=== PATIENT | female | born 1935 | race Hispanic/Latino ===

== ENCOUNTER 2022-01-13 09:14 | Outpatient (CLI) | payer MEDICARE ==
--- NOTE | 2022-01-13 11:10 | Cat Scan Report ---
CT ABDOMEN AND PELVIS WITHOUT CONTRAST INDICATION / CLINICAL INFORMATION: R10.9 FLANK PAIN. TECHNIQUE: Axial CT images were obtained through the abdomen and pelvis without IV contrast. All CT scans at this location are performed using CT dose reduction for ALARA by means of automated exposure control. COMPARISON: None available. FINDINGS: LOWER CHEST: Mild bibasilar subsegmental atelectasis. LIVER: No significant abnormality. GALLBLADDER: Cholecystectomy. BILE DUCTS: No significant abnormality. PANCREAS: No significant abnormality. SPLEEN: No significant abnormality. ADRENALS: No significant abnormality. RIGHT KIDNEY / URETER: Low-density exophytic lesion measuring 2.8 cm, likely representing a cyst. No hydronephrosis. LEFT KIDNEY / URETER: Low-density exophytic lesion measuring 1.5 cm, likely representing a cyst. No h ydronephrosis. STOMACH / SMALL BOWEL: No significant abnormality. COLON: Colonic diverticulosis without evidence of diverticulitis. APPENDIX: Not visualized. PERITONEUM: No free fluid. No free air. No fluid collection. LYMPH NODES: No significant adenopathy. AORTA / ARTERIES: Mild atherosclerotic calcification without acute abnormality. IVC / VEINS: No significant abnormality. URINARY BLADDER: No significant abnormality. REPRODUCTIVE ORGANS: No significant abnormality. ADDITIONAL FINDINGS: None. SKELETAL SYSTEM: Age-indeterminate superior endplate compression deformity of the L2 vertebral body. Grade 1 anterolisthesis of L4 on L5. 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 IMPRESSION: 1. Age-indeterminate superior endplate compression deformity of L2 vertebral body with approximately 30% height loss. 2. Colonic diverticulosis without evidence of diverticulitis. 3. No acute intra-abdominal or pelvic abnormality. Signer Name: Nolberto Garcia MD Signed: 01/13/2022 11:06 AM Workstation Name: [id number]
== END 2022-01-13 09:15 | disposition home or self-care (01) ==
LOC: CT 09:14
PROVIDERS: ATTEND Urology
DX: K57.30 Diverticulosis of large intestine without perforation or abscess without bleeding (principal); J98.11 Atelectasis; I70.0 Atherosclerosis of aorta; M47.816 Spondylosis without myelopathy or radiculopathy, lumbar region; Z90.49 Acquired absence of other specified parts of digestive tract
CPT/HCPCS: 74176